=== PATIENT | female | born 1970 | race Caucasian/White ===

== ENCOUNTER 2017-07-17 02:05 | Inpatient (IN) ==
[2017-07-17] MEDS ORDERED: IPRATROPIUM/ALBUTEROL 3 ML AMPUL.NEB NEB ONE ×2 (02:09→02:12)
[2017-07-17] MEDS ORDERED: methylPREDNISolone SOD SUCC 125 MG/2 ML VIAL IV ONE (02:42)
[2017-07-17] MEDS ORDERED: 0.9 % SODIUM CHLORIDE 1,000 ML IV ONE (02:42)
--- NOTE | 2017-07-17 02:50 | Emergency Department Note ---
SOB HPI - General Chief Complaint: Shortness of Breath/Dyspnea Stated Complaint: Shortness of breath Time Seen by Provider: 07/17/17 02:29 Source: patient Mode of arrival: wheelchair Limitations: no limitations - History of Present Illness 47-year-old female who is really been sick for over 6 weeks now-short of breath. She has known COPD and quit smoking 3 months ago. However she was diagnosed with pneumonia back about 6 weeks ago when I saw her at the end of May here in the ER. Since then she has had 4 courses of antibiotics and has been using inhalers, home nebulizer, steroids and has actually become worse not better. [facility] she had used her nebulizer twice just to get her oxygen sats above the 70s-she has a home pulse oximeter as well. In fact this is happened twice today where she has had to use her home nebulizer twice back to back to keep her oxygen levels up. Shortness of breath actually woke her up this evening and brought her in [facility]. She is having chest pain at the location where she was previously diagnosed with pneumonia, that is the left lower lung mosqueda anteriorly. She continues to have shortness of breath and significant wheezing - Related Data Home Medications Medication Instructions Recorded Confirmed diphenhydramine 25 mg tablet 25 mg PO .QD PRN tab 12/13/15 07/17/17 ibuprofen 200 mg tablet 600 mg PO TID tab 12/13/15 07/17/17 mometasone 200 mcg/actuation HFA 2 inh INHALATION QDAY g 09/14/16 07/17/17 aerosol inhaler omeprazole 20 mg capsule,delayed 20 mg PO BID 09/14/16 07/17/17 release Previous Rx's Medication Instructions Recorded albuterol sulfate HFA 90 1 puff INHALATION ONCE PRN #18 g 02/09/17 mcg/actuation aerosol inhaler Nebulizer #1 each 03/19/17 albuterol sulfate concentrate 2.5 2.5 mg CONTINUOUS NEBULIZATION 03/30/17 mg/0.5 mL solution for nebulization .4XD #90 ml sertraline 100 mg tablet 100 mg PO .COMPLEX #30 tab 05/24/17 Allergies Allergy/AdvReac Type Severity Reaction Status Date / Time adhesive Allergy Unknown Blister Verified 06/08/17 08:28 codeine Allergy Unknown Rash Verified 06/08/17 08:28 Hydromorphone Allergy Unknown Unknown Verified 06/08/17 08:28 meperidine [From Demerol] Allergy Unknown Rash Verified 06/08/17 08:28 seasonal Allergy Unknown Breathing Uncoded 06/08/17 08:28 Review of Systems All systems ED: reviewed and negative except as stated. Past Medical History - Past Medical History Attestation: Yes: The following information was validated with the patient. Medical history: Reports: COPD, GERD, other (Allergic rhinitis, sleep apnea) Psychiatric history: Reports: depression KETTLE CLEANER history: Reports: bilateral tubal ligation Surgical history ED: Reports: orthopedic, other (4 times shoulder surgery) Family history: Reports: CAD/NE (Both parents) - Social History smoking status: Former smoker Physical Exam Overweight female in some acute distress secondary to dyspnea. Diaphoretic. Normocephalic atraumatic. Conjunctive are clear sclerae nonicteric. No nasal discharge or congestion. Oropharynx is pink and moist. Some missing teeth. Neck is supple without lymphadenopathy thyromegaly or carotid bruit. Heart is tachycardic but regular rhythm. Lungs are basically clear after single breathing treatment with DuoNeb but she does have significant end expiratory wheeze and increased work of breathing. Abdomen soft nontender nondistended. When I palpate the anterior chest wall I cannot reproduce chest pain. No pedal edema. +2 radial pulse. Alert oriented Limitations: no limitations Course Vital Signs Temperature 98.7 F 07/17/17 02:05 Pulse Rate 104 H 07/17/17 02:05 Respiratory Rate 19 07/17/17 02:05 Blood Pressure 145/95 07/17/17 02:05 Temperature 98.0 F 07/17/17 03:30 Pulse Rate 95 H 07/17/17 04:16 Respiratory Rate 20 07/17/17 04:16 Blood Pressure 126/93 07/17/17 04:16 Pulse Oximetry (%) 95 07/17/17 04:16 Shortness of Breath/Dyspnea - Lab Data Lab results reviewed: Yes I reviewed the patient's lab results. Result diagrams: 07/17/17 02:50 07/17/17 02:50 Lab Results 07/17/17 07/17/17 07/17/17 Range/Units 02:50 02:50 02:50 WBC 6.0 (4.5-11.0) K/mcL RBC 4.44 (4.00-5.20) M/mcL Hgb 13.4 (12.0-15.0) g/dL Hct 39.6 (36.0-48.0) % POC Hct 40.0 (36.0-48.0) % MCV 89.3 (80.0-100.0) fL MCH 30.1 (26.0-34.0) pg MCHC 33.7 (31.0-36.0) g/dL RDW 14.7 H (11.5-14.5) % Plt Count 192 (140-440) K/mcL MPV 9.5 (7.4-10.4) fL Gran % 53.5 (38.0-78.0) % Lymph % (Auto) 31.2 (15.5-49.0) % Yell % (Auto) 10.5 (1.0-12.0) % Eos % (Auto) 4.5 (0.0-7.0) % Baso % (Auto) 0.3 (0.0-2.0) % Gran # 3.2 (1.8-8.0) K/mcL Lymph # (Auto) 1.9 (1.5-4.8) K/mcL Yell # (Auto) 0.6 (0.1-0.9) K/mcL Eos # (Auto) 0.3 (0.0-0.7) K/mcL Baso # (Auto) 0 (0.0-0.3) K/mcL Differential Comment (()) VBG Lactic Acid 1.0 (0.5-2.2) mmol/L POC Sodium 140 (133-145) mmol/L Sodium 137 (133-145) mmol/L POC Potassium 3.3 (3.3-5.1) mmol/L Potassium 3.5 (3.3-5.1) mmol/L POC Chloride 106 (96-108) mmol/L Chloride 101 (96-108) mmol/L Carbon Dioxide 21 L (22-30) mmol/L POC Total CO2 23 (22-30) mmol/L Anion Gap 15.0 (8-16) POC BUN 15 (6-20) mg/dl BUN 14 (6-20) mg/dl Creatinine 0.9 (0.6-1.1) mg/dl POC Creatinine 0.8 (0.6-1.1) mg/dl GFR Calculation 77 Glucose 115 H (70-105) mg/dL POC Glucose 115 H (70-105) mg/dL Calcium 8.7 (8.6-10.4) mg/dl POC WB Ioniz Calcium 1.07 L (1.16-1.32) mmol/L Total Bilirubin 0.3 (0.0-1.0) mg/dL AST 71 H (0-37) U/l ALT 79 H (0-40) U/l Alkaline Phosphatase 121 H (39-117) U/L Troponin T (0-0.03) ng/ml Total Protein 6.9 (5.9-8.4) gm/dL Albumin 3.7 (3.2-5.2) gm/dL Globulin 3.2 (2.2-3.7) gm/dL Albumin/Globulin Ratio 1.2 (1.0-2.3) 07/17/17 Range/Units 02:50 WBC (4.5-11.0) K/mcL RBC (4.00-5.20) M/mcL Hgb (12.0-15.0) g/dL Hct (36.0-48.0) % POC Hct (36.0-48.0) % MCV (80.0-100.0) fL MCH (26.0-34.0) pg MCHC (31.0-36.0) g/dL RDW (11.5-14.5) % Plt Count (140-440) K/mcL MPV (7.4-10.4) fL Gran % (38.0-78.0) % Lymph % (Auto) (15.5-49.0) % Yell % (Auto) (1.0-12.0) % Eos % (Auto) (0.0-7.0) % Baso % (Auto) (0.0-2.0) % Gran # (1.8-8.0) K/mcL Lymph # (Auto) (1.5-4.8) K/mcL Yell # (Auto) (0.1-0.9) K/mcL Eos # (Auto) (0.0-0.7) K/mcL Baso # (Auto) (0.0-0.3) K/mcL Differential Comment (()) VBG Lactic Acid (0.5-2.2) mmol/L POC Sodium (133-145) mmol/L Sodium (133-145) mmol/L POC Potassium (3.3-5.1) mmol/L Potassium (3.3-5.1) mmol/L POC Chloride (96-108) mmol/L Chloride (96-108) mmol/L Carbon Dioxide (22-30) mmol/L POC Total CO2 (22-30) mmol/L Anion Gap (8-16) POC BUN (6-20) mg/dl BUN (6-20) mg/dl Creatinine (0.6-1.1) mg/dl POC Creatinine (0.6-1.1) mg/dl GFR Calculation Glucose (70-105) mg/dL POC Glucose (70-105) mg/dL Calcium (8.6-10.4) mg/dl POC WB Ioniz Calcium (1.16-1.32) mmol/L Total Bilirubin (0.0-1.0) mg/dL AST (0-37) U/l ALT (0-40) U/l Alkaline Phosphatase (39-117) U/L Troponin T < 0.01 (0-0.03) ng/ml Total Protein (5.9-8.4) gm/dL Albumin (3.2-5.2) gm/dL Globulin (2.2-3.7) gm/dL Albumin/Globulin Ratio (1.0-2.3) Flu swab is negative. Arterial blood gas shows pH 7.45 PCO2 36 and PO2 of 61 on room air - Radiology Data Radiology results reviewed: Yes I reviewed the patient's radiology results. Chest x-ray shows increased infiltrate on the left lower lung field. CT scan is ordered to further sort this out CT scan shows no pneumonia, just emphysema - EKG Data EKG attestation: Yes I reviewed and interpreted this EKG. EKG results narrative: EKG shows a rate of 108 sinus tachycardia with T-wave inversion in V1 and V2. There is a left axis deviation Disposition Pt seen by EVENT AV OPERATOR/PA only: No Clinical Impression: Acute exacerbation of chronic obstructive airways disease Summary: Patient received DuoNeb treatment while working up with laboratory x-ray. Flu swab arterial blood gas, IV fluids and Solu-Medrol also ordered. Blood cultures and Zosyn After chest x-ray reviewed, CT scan is ordered-emphysema is seen but no pneumonia Laboratory is unrevealing. However even after workup and nebulizer treatment patient remains very fatigued with wheezing and increased work of breathing. Still requiring oxygen. Recommend admission for COPD exacerbation after prolonged therapeutic trial as an outpatient. Discussed case with Dr. Osorio, hospitalist, who agreed to accept the patient further inpatient care Disposition: Home, Self-Care Condition: Fair Referrals: Primitivo Garcia DO [Primary Care Provider] -
[2017-07-17] MEDS ORDERED: PIPERACILLIN SODIUM/TAZOBACTAM 3.375 GM in DEXTROSE 5% IN WATER 50 ML IV ONE (02:55)
[2017-07-17 03:36] LABS: Basophils # (Auto) 0 K/mcL (0.0-0.3); Basophils % (Auto) 0.3 % (0.0-2.0); Eosinophils # (Auto) 0.3 K/mcL (0.0-0.7); Eosinophils % (Auto) 4.5 % (0.0-7.0); Granulocytes % (Auto) 53.5 % (38.0-78.0); Lymphocytes # (Auto) 1.9 K/mcL (1.5-4.8); Lymphocytes % (Auto) 31.2 % (15.5-49.0); Mean Cell Volume 89.3 fL (80.0-100.0); Mean Corpuscular HGB Conc 33.7 g/dL (31.0-36.0); Mean Corpuscular Hemoglobin 30.1 pg (26.0-34.0); Monocytes # (Auto) 0.6 K/mcL (0.1-0.9); Monocytes % (Auto) 10.5 % (1.0-12.0); Platelet Count 192 K/mcL (140-440); RBC 4.44 M/mcL (4.00-5.20); Red Cell Distribution Width 14.7 % (11.5-14.5)
[2017-07-17 03:50] LABS: ALT/SGPT 79 U/l (0-40); Albumin 3.7 gm/dL (3.2-5.2); Albumin/Globulin Ratio 1.2 (1.0-2.3); Alkaline Phosphatase 121 U/L (39-117); Blood Urea Nitrogen 14 mg/dl (6-20)
[2017-07-17] MEDS ORDERED: SERTRALINE 25 MG TABLET PO SCH (05:37)
[2017-07-17] MEDS ORDERED: ONDANSETRON 4 MG/2 ML VIAL IV PRN (05:37)
[2017-07-17] MEDS ORDERED: NALOXONE HCL 0.4 MG/ML VIAL IV PRN (05:37)
[2017-07-17] MEDS ORDERED: MAGNESIUM HYDROXIDE 30 ML ORAL.SUSP PO PRN (05:37)
[2017-07-17] MEDS ORDERED: ACETAMINOPHEN 325 MG TABLET PO PRN (05:37)
[2017-07-17] MEDS ORDERED: methylPREDNISolone SOD SUCC 125 MG/2 ML VIAL IV SCH (06:00)
--- NOTE | 2017-07-17 06:10 | XRay Report ---
CLINICAL INFORMATION: Shortness of breath COMPARISON: None. FINDINGS: The heart size, mediastinum and pulmonary vessels are unremarkable. The lungs are clear. There are no effusions. The bones and soft tissues are within normal limits. IMPRESSION: Normal chest. Interpreted and Authenticated by: Primitivo Friedman 07/17/17
[2017-07-17] MEDS ORDERED: diphenhydrAMINE 25 MG CAPSULE PO PRN (07:19)
[2017-07-17] MEDS: IPRATROPIUM/ALBUTEROL 3 ML AMPUL.NEB NEB SCH ×5 (07:47→22:19)
--- NOTE | 2017-07-17 07:49 | Internal Med History&Physical ---
Medical - H&P: HPI Patient information: Note initiated : 07/17/17 at 7:45 am Service Date, if different from initiated Date: [] Patient: Amalia Perera a 47 y/o F admitted on 07/17/17 for Shortness of breath. Chief Complaint: [] History of present illness: Ms. Perera is a 47 year old Female with h/o copd, presents to the ER today with complaints of shortness of breath going on x 1 week. the patient notes that for the last 1 week she has noticed due to shortness of breath associated with fever, shortness of breath is worse with exertion, associated with some wheezing , since the last 2 days she has noticed that her oxygen level has been dropping. Negative for yesterday. She's had an episode of shortness of breath while she was sitting down. She has a pulse oximeter at home she checked her oxygen saturation it was in the 70s, she gave herself 2 rounds of duonebs and that helped her oxygen come back up again. The patient last night again woke up with shortness of breath and wheezing. Her oxygen saturation was again in the 70s. She gave herself 2 rounds of DuoNeb's and came to the ED for further evaluation. In the emergency room. According to the ED physician. Her oxygen saturation was low at presentation. This improved after given nebulizer treatment. The patient is also complaining about fever with intermittent chills that has been going on for the last 1 week. The patient has not been feeling well over the last 6 weeks, she was seen in the emergency room, I believe in May with similar complaints, daignosed with pneumonia, At that time, she was given a round of antibiotics and steroids. After which she has been seen twice by a provider and she's had 2 more rounds of antibiotics. I believe she was treated by azithromycin, doxycycline and possibly levofloxacin . In the last 6 weeks. The patient has had some response to these treatments. However, her condition is relapsed after the treatment was completed. according to the patient. She has a pet, she has stopped smoking recently, I believe, 3 months ago, she has not had any change in her environment at home, no new perfumes. No new detergents, no new pets. Her boyfriend who lives next door is doing some construction work and the patient is there often. It is likely that this construction work and the dust emanating from it is likely acting as a trigger and exacerbating the patient's condition. the patient denies any exposure to sick contacts. In the emergency room, the patient was febrile with a temperature of 101.3, she was hypoxic according to the ER physician in the 70s with improvement with DuoNeb's. Her labs were unremarkable, chest x-ray was initially reported as possible infiltrate. However, later CT chest was done which did not show any infection or pneumonia. Option reading of the CT scan of the chest with contrast is still pending. the patient had some headache and dizziness in the past not resolved, denies any difficulty in swallowing, no visual or auditory complaints, she has some shortness of breath and wheezing, she had some chest pain since last 1 day. On the left side associated with deep breathing, she denies any nausea, vomiting, abdominal pain, denies any burning urine. His frequency of urine. Denies any constipation or diarrhea, she denies any joint pains or new skin rashes. he has history of anxiety. Given that she has failed outpatient treatment. The patient was admitted to the hospital for further management. All systems: reviewed and no additional remarkable complaints except as stated ( as per HPI) Medical - H&P: PMH Medical history: Medical History (Last Reviewed 06/08/17 @ 08:28 by Primitivo Garcia DO) Tobacco abuse (Chronic) Rotator cuff tear, left (Chronic) Shoulder pain (Chronic) Hypertension (Chronic) Depression (Chronic) Asthma (Chronic) Anxiety (Chronic) Acute exacerbation of chronic obstructive airways disease (Chronic) Surgical history: Past Surgical History (Last Reviewed 06/08/17 @ 08:28 by Primitivo Garcia DO) Hx of rotator cuff surgery (Chronic) Hx of shoulder surgery (Chronic) Hx of tubal ligation (Chronic) Pertinent family history: Family History (Last Reviewed 06/08/17 @ 08:28 by Primitivo Garcia DO) Sister Diabetes Hypertension Brother Diabetes Hypertension Mother Heart attack Cardiovascular disease Father Stroke Cardiovascular disease Medical - H&P: Meds Home Medications Medication Instructions Recorded Confirmed Type diphenhydramine 25 mg tablet 25 mg PO .QD PRN tab 12/13/15 07/17/17 History ibuprofen 200 mg tablet 600 mg PO TID tab 12/13/15 07/17/17 History mometasone 200 mcg/actuation HFA 2 inh INHALATION QDAY g 09/14/16 07/17/17 History aerosol inhaler omeprazole 20 mg capsule,delayed 20 mg PO LD 09/14/16 07/17/17 History release albuterol sulfate HFA 90 1 puff INHALATION ONCE PRN #18 g 02/09/17 07/17/17 Rx mcg/actuation aerosol inhaler Nebulizer #1 each 03/19/17 06/08/17 Rx albuterol sulfate concentrate 2.5 2.5 mg CONTINUOUS NEBULIZATION 03/30/17 Rx mg/0.5 mL solution for nebulization .4XD #90 ml sertraline 100 mg tablet 100 mg PO .COMPLEX #30 tab 05/24/17 07/17/17 Rx Allergies Allergy/AdvReac Type Severity Reaction Status Date / Time codeine Allergy Mild Rash Verified 07/17/17 07:09 meperidine [From Demerol] Allergy Mild Rash Verified 07/17/17 07:09 Hydromorphone Allergy Unknown Unknown Verified 06/08/17 08:28 adhesive AdvReac Mild Blister Verified 07/17/17 07:09 Medical - H&P: Exam - Constitutional Vitals: Temp Pulse Resp BP Pulse Ox 97.6 F 88 24 H 158/108 96 07/17/17 05:37 07/17/17 05:37 07/17/17 05:37 07/17/17 05:37 07/17/17 05:37 Exam: GENERAL: The patient is a well-developed, well-nourished in no apparent distress. Is alert and oriented x3. VITAL SIGNS: Reviewed and as noted elsewhere. HEENT: Head is normocephalic and atraumatic. Extraocular muscles are intact. Pupils are equal, round, and reactive to light. Nares appeared normal. Mouth appears any without lesions. Mucous membranes are dry. NECK: Normal to inspection, Supple, No lymphadenopathy or thyromegaly. LUNGS: Air entry equal on both sides, xiomy significantly dimished air entry, xiomy exp wheezing No crackles or rhonchi noted. No accessory muscles of respiration HEART: Regular rate and rhythm normal, S1 and S2 heard, no Gallop, S3 or Rub Noted, No Gross murmur heard. ABDOMEN: Soft, nontender, and nondistended. Positive bowel sounds. No hepatosplenomegaly was noted. EXTREMITIES: No cyanosis, clubbing, rash, lesions or edema. NEUROLOGIC: Cranial nerves II through XII are grossly intact. Motor and Sensory System Grossly Intact PSYCHIATRIC: Normal affect, Normal Mood. Appropriate Behavior. SKIN: No ulceration or wounds noted, No jaundice, No rash noted. Medical - H&P: Reslt - Labs CBC & Chem 7: 07/17/17 02:50 07/17/17 02:50 Labs: Short CBC 07/17/17 Range/Units 02:50 WBC 6.0 (4.5-11.0) K/mcL Hgb 13.4 (12.0-15.0) g/dL Hct 39.6 (36.0-48.0) % Plt Count 192 (140-440) K/mcL BMP 07/17/17 02:50 Sodium 137 Potassium 3.5 Chloride 101 Carbon Dioxide 21 L BUN 14 Creatinine 0.9 Glucose 115 H Calcium 8.7 Cardiac Enzymes 07/17/17 Range/Units 02:50 Troponin T < 0.01 (0-0.03) ng/ml Liver Function 07/17/17 Range/Units 02:50 Total Bilirubin 0.3 (0.0-1.0) mg/dL AST 71 H (0-37) U/l ALT 79 H (0-40) U/l Alkaline Phosphatase 121 H (39-117) U/L Albumin 3.7 (3.2-5.2) gm/dL Medical - H&P: A/P - Narrative A/P Narrative: A/P Acute copd exacerbation/ emphysema: triggers, IV steroids, DuoNeb every 4 hours and azithromycin for now. CT chest is negative for an acute pneumonia. We will follow-up official result. The etiology of fever would likely be a viral in nature. Influenza test was negative. In the ED, Patient educated to avoid the construction activity at the boyfriend's house or use a mask. Check ua and urine drug screen, check procalcitonin. Anxiety: continue zoloft Obesity Wt loss needed follow with pcp Chest pain: Pleuritic in nature, await ct results, EKG reviewed, has some qs pattern in ant septal leads, left axis, and non specific t wave changes in ant and lateral leads, unchanged from previous ekg, trend troponin for now. DVT hep sq Diet regular Full code Medical - H&P: Qual - Stroke Symptom Onset Unknown: No - VTE Deep Vein Thrombosis/Pulmonary Embolism Present on Admission: No Social History - Social History adopted: No household members: alone, significant other, other housing: other marital status: single education level: middle school service: No occupational status: unemployed occupation: worked at [email or web address] since 2012 pets and animals: Yes leisure activities: reading hx recent travel: No sexually active: Yes (not for past 12 months) - Pets pets and animals: dog(s) - Dietary Habits well-balanced diet: other high-fat food intake: 0-1 times daily daily servings fruits/ve or more times/day daily servings of milk/calcium: 0-1 eating out: rarely or never during the past year weight has: decreased > 10 lbs - Exercise physical activity: walking frequency: daily duration: 45-60 minutes/day - Tobacco smoking status: Former smoker quit status: considering quitting counseling given: provider counseling - Tobacco Type tobacco type: cigarettes - Cigarette Details per day: 2 - Alcohol alcohol intake frequency: former alcohol drinker - Substance use substance use type: does not use - Carly/Buddhist carly/quaker: None special carly needs: No - Safety helmet use: Yes drive intox or ride w/ intox vending route driver: No - Home Safety water heater temp set < 120 deg: Yes working smoke detector in home: Yes fire extinguisher in home: Yes carbon monox detector in home: Yes firearms in home: No
[2017-07-17] MEDS ORDERED: AZITHROMYCIN 250 MG TABLET PO ONE (08:00)
[2017-07-17] MEDS: OMEPRAZOLE 20 MG CAPSULE PO SCH ×2 (08:36→16:52)
[2017-07-17] MEDS: SERTRALINE 50 MG TABLET PO SCH (09:54)
[2017-07-17] MEDS: ENOXAPARIN 40 MG/0.4 ML SYRINGE SQ SCH (09:55)
[2017-07-17 10:19] LABS: Appearance,Urine CLEAR; Bacteria,Urine 0 /hpf (0); Bilirubin,Urine NEG (NEG); Color,Urine YELLOW; Glucose,Urine (UA) NEGATIVE (NEG); Leukocyte Esterase,Urine NEG /uL (NEG); Mucus,Urine FEW /hpf (0); Protein,Urine NEG (NEG); Specific Gravity,Urine 1.027 (1.000-1.035); Urine Blood 0.03 mg/dL (<0.03); Urine RBC 3 /hpf (0-1); Urine Squamous Epithelial Cell < 1 /hpf (0-4); Urine WBC 1 /hpf (0-4); Urobilinogen,Urine NEG (NEG)
[2017-07-17 10:30] LABS: Amphetamine Screen,Urine NONE DETECTED (NONDETECTED); Benzodiazepines Screen,Urine NONE DETECTED (NONDETECTED); Cocaine Screen,Urine NONE DETECTED (NONDETECTED); Opiate Screen,Urine NONE DETECTED (NONDETECTED); Oxycodone, Urine Screen NONE DETECTED (NONDETECTED)
[2017-07-17] MEDS: HYDROcodone/APAP 5/325MG TABLET PO PRN ×2 (13:00→16:52)
[2017-07-17] MEDS: methylPREDNISolone SOD SUCC 125 MG/2 ML VIAL IV SCH ×2 (13:01→21:25)
[2017-07-17] MEDS: 0.9 % SODIUM CHLORIDE 10 ML SYRINGE IV SCH ×2 (13:05→21:24)
--- NOTE | 2017-07-17 15:48 | Cat Scan Report ---
CLINICAL INFORMATION: Shortness of breath. History of COPD COMPARISON: 06/05/2017 TECHNIQUE: 80 cc of Isovue-300 were injected intravenously, and 25 seconds later, 0.625 mm helical slices were obtained from the lung apices through the bases. Following reconstruction, 2.5 mm sagittal, coronal and axial reformations were processed and reviewed at lung, mediastinal and bone windows. 7 mm axial MIPS were also obtained to optimize pulmonary nodule detection. The exam was performed using radiation dose optimization techniques including, but not limited to, automated exposure control, adjustment of the mA and/or kV according to patient size and use of iterative reconstruction technique. FINDINGS: Pulmonary parenchymal windows show mild centrilobular emphysema changes featuring elevated lung volumes, chronic bronchitis with a few scattered bullae and apical regions. The small bilateral infiltrates, described in previous study study have largely cleared with small residual groundglass infiltrate in the lateral basilar segment of the left lower lobe (image 37) and a small residual infiltrate in the lateral right upper lobe (image 33). A small (6 mm nodular density in the lateral right lower lobe (image 91) is likely focal atelectasis. This was not present on the previous study. There are no effusions. Mediastinal windows show thoracic aorta and pulmonary arteries to be normal. Borderline enlarged lymph nodes and lower mediastinal and unchanged are likely benign reactive lymph nodes. The heart is normal in size configuration. Coronary arteries are widely patent esophagus is normal. Thyroid is normal. IMPRESSION: Only a small vague infiltrates in the right upper and left lower lobe. Most of the infiltrates, described on previous study, have resolved Mild underlying centrilobular emphysema Interpreted and Authenticated by: Primitivo Friedman 07/17/17
[2017-07-17] MEDS ORDERED: FLU VACC QS2017-18 36MOS UP/PF 60 MCG/0.5 ML SYRINGE IM ONE (16:00)
[2017-07-18] MEDS: IPRATROPIUM/ALBUTEROL 3 ML AMPUL.NEB NEB SCH ×6 (04:10→23:10)
[2017-07-18 05:51] LABS: Basophils # (Auto) 0 K/mcL (0.0-0.3); Basophils % (Auto) 0.2 % (0.0-2.0); Eosinophils # (Auto) 0.2 K/mcL (0.0-0.7); Eosinophils % (Auto) 2.1 % (0.0-7.0); Granulocytes % (Auto) 78.9 % (38.0-78.0); Lymphocytes # (Auto) 1.2 K/mcL (1.5-4.8); Lymphocytes % (Auto) 15.8 % (15.5-49.0); Mean Cell Volume 92.8 fL (80.0-100.0); Mean Corpuscular HGB Conc 34.1 g/dL (31.0-36.0); Mean Corpuscular Hemoglobin 31.6 pg (26.0-34.0); Monocytes # (Auto) 0.2 K/mcL (0.1-0.9); Platelet Count 237 K/mcL (140-440); RBC 4.09 M/mcL (4.00-5.20); Red Cell Distribution Width 15.3 % (11.5-14.5)
[2017-07-18] MEDS: methylPREDNISolone SOD SUCC 125 MG/2 ML VIAL IV SCH ×3 (05:56→22:12)
[2017-07-18] MEDS: 0.9 % SODIUM CHLORIDE 10 ML SYRINGE IV SCH ×3 (05:56→22:12)
[2017-07-18 06:04] LABS: ALT/SGPT 60 U/l (0-40); Albumin 4.2 gm/dL (3.2-5.2); Albumin/Globulin Ratio 1.4 (1.0-2.3); Alkaline Phosphatase 112 U/L (39-117); Bilirubin,Direct < 0.2 mg/dL (0.0-0.3); Blood Urea Nitrogen 16 mg/dl (6-20); Gamma Glutamyl Transpeptidase 131 U/L (5-36); Uric Acid 4.7 mg/dL (2.5-8.0)
[2017-07-18] MEDS: OMEPRAZOLE 20 MG CAPSULE PO SCH ×2 (07:56→17:09)
[2017-07-18] MEDS: HYDROcodone/APAP 5/325MG TABLET PO PRN ×2 (07:57→17:09)
[2017-07-18] MEDS ORDERED: AZITHROMYCIN 250 MG TABLET PO SCH (09:00)
[2017-07-18] MEDS: SERTRALINE 50 MG TABLET PO SCH (09:19)
[2017-07-18] MEDS: ENOXAPARIN 40 MG/0.4 ML SYRINGE SQ SCH (09:20)
--- NOTE | 2017-07-18 10:25 | Internal Med Progress Note ---
Medical - PN: Subj Patient information: Note initiated : 07/18/17 at 10:23 am Service Date, if different from initiated Date: [] Patient: Amalia Perera a 47 y/o F admitted on 07/17/17 for Shortness of breath. Chief Complaint: [] Interval history: Ms. Perera is a 47 year old Female with h/o copd, presents to the ER today with complaints of shortness of breath going on x 1 week. the patient notes that for the last 1 week she has noticed due to shortness of breath associated with fever, shortness of breath is worse with exertion, associated with some wheezing , since the last 2 days she has noticed that her oxygen level has been dropping. Negative for yesterday. She's had an episode of shortness of breath while she was sitting down. She has a pulse oximeter at home she checked her oxygen saturation it was in the 70s, she gave herself 2 rounds of duonebs and that helped her oxygen come back up again. The patient last night again woke up with shortness of breath and wheezing. Her oxygen saturation was again in the 70s. She gave herself 2 rounds of DuoNeb's and came to the ED for further evaluation. In the emergency room. According to the ED physician. Her oxygen saturation was low at presentation. This improved after given nebulizer treatment. The patient is also complaining about fever with intermittent chills that has been going on for the last 1 week. The patient has not been feeling well over the last 6 weeks, she was seen in the emergency room, I believe in May with similar complaints, daignosed with pneumonia, At that time, she was given a round of antibiotics and steroids. After which she has been seen twice by a provider and she's had 2 more rounds of antibiotics. I believe she was treated by azithromycin, doxycycline and possibly levofloxacin . In the last 6 weeks. The patient has had some response to these treatments. However, her condition is relapsed after the treatment was completed. according to the patient. She has a pet, she has stopped smoking recently, I believe, 3 months ago, she has not had any change in her environment at home, no new perfumes. No new detergents, no new pets. Her boyfriend who lives next door is doing some construction work and the patient is there often. It is likely that this construction work and the dust emanating from it is likely acting as a trigger and exacerbating the patient's condition. the patient denies any exposure to sick contacts. In the emergency room, the patient was febrile with a temperature of 101.3, she was hypoxic according to the ER physician in the 70s with improvement with DuoNeb's. Her labs were unremarkable, chest x-ray was initially reported as possible infiltrate. However, later CT chest was done which did not show any infection or pneumonia. Option reading of the CT scan of the chest with contrast is still pending. the patient had some headache and dizziness in the past not resolved, denies any difficulty in swallowing, no visual or auditory complaints, she has some shortness of breath and wheezing, she had some chest pain since last 1 day. On the left side associated with deep breathing, she denies any nausea, vomiting, abdominal pain, denies any burning urine. His frequency of urine. Denies any constipation or diarrhea, she denies any joint pains or new skin rashes. he has history of anxiety. Given that she has failed outpatient treatment. The patient was admitted to the hospital for further management. Jul 18 patient seen and examined, no acute overnight events, she gets tachycardic on ambulation with a heart rate comes back normal, when she is at rest. The patient still had shortness of breath on minimal exertion. She admits to being fatigued during ambulation. Cough is still there. She notes symptoms are somewhat worse today than yesterday. Improved with nebulizer treatments. She denies any chest pain, no abdominal pain, no nausea, no vomiting, able to tolerate by mouth diet very well, she still needs oxygen 1-2 L intermittently. Laboratory studies reviewed Pertinent ROS: Denies headache, dizziness Denies chest pain, palpitations present cough and shortness of breath Denies abdominal pain, nausea or vomiting. - Constitutional Vitals: Vital Signs Temp Pulse Resp BP Pulse Ox 98.2 F 98 H 18 143/93 92 07/18/17 07:49 07/18/17 07:30 07/18/17 07:49 07/18/17 07:49 07/18/17 07:49 Period Temp Pulse Resp BP Sys/Valencia Pulse Ox Last 24 Hr 97.8 F-99.1 F 85-104 18-22 131-156/89-103 88-98 Intake and Output 07/17/17 07/18/17 07/18/17 21:59 05:59 13:59 Intake Total 1020 / 1020 300 / 300 Output Total 600 / 600 600 / 600 Balance 420 / 420 -300 / -300 Weight 211 lb Intake & Output: Intake & Output 07/17/17 07/18/17 07/18/17 21:59 05:59 13:59 Intake Total 1020 / 1020 300 / 300 Output Total 600 / 600 600 / 600 Balance 420 / 420 -300 / -300 Weight 211 lb Intake: Oral 1020 / 1020 300 / 300 Output: Void Amount 600 / 600 600 / 600 Other: Meal Dinner Breakfast Percent of Meal Consumed 100% 100% Feeding Ability Independent Independent # Voids 1 Exam: Constitutional; Afebrile, cooperative, alert, not in distress. Eyes- No icterus, , No periorbital swelling Ears- Ext ear normal, hearing normal to conversation. Neck- Midline trachea, supple Respiratory system: Air Entry equal on both sides, bilaterally diminished air entry, xiomy exp wheezing. no resp distress noted. CVS- Rate rhythm regular, S1,S2 heard, no gallop, no rub. Abdomen- Soft nontender abdomen, no organomegaly, no tenderness, no guarding or rigidity, W[employer] BATTER [employer]ER- AOOx3, moving all extremities, no gross focal deficit noted. Medical - PN: Obj Da - Labs CBC & Chem 7: 07/18/17 03:30 07/18/17 03:30 Labs: Abnormal Lab Results 07/18/17 07/18/17 07/17/17 03:30 03:30 09:12 RDW 15.3 H Gran % 78.9 H Lymph # (Auto) 1.2 L Carbon Dioxide Glucose 153 H POC Glucose POC WB Ioniz Calcium GGT 131 H AST ALT 60 H Alkaline Phosphatase Lactate Dehydrogenase 310 H Triglycerides 177 H Urine Occult Blood 0.03 A Urine RBC 3 H 07/17/17 07/17/17 02:50 02:50 RDW 14.7 H Gran % Lymph # (Auto) Carbon Dioxide 21 L Glucose 115 H POC Glucose 115 H POC WB Ioniz Calcium 1.07 L GGT AST 71 H ALT 79 H Alkaline Phosphatase 121 H Lactate Dehydrogenase Triglycerides Urine Occult Blood Urine RBC Meds: Medications Acetaminophen (Tylenol) 650 mg PO Q6HP PRN PRN Reason: PAIN/FEVER > 101 Last Admin: 07/17/17 18:46 Dose: 650 mg Hydrocodone Bitart/Acetaminophen ([place] 5/325mg) 1 tab PO Q4HP PRN PRN Reason: PAIN LEVEL 3-6 Last Admin: 07/18/17 07:57 Dose: 1 tab Albuterol/Ipratropium (Duoneb) 3 ml NEB Q4HRT [facility] Last Admin: 07/18/17 07:29 Dose: 3 ml Azithromycin (Zithromax) 250 mg PO DAILY [facility] Stop: 07/21/17 09:01 Last Admin: 07/18/17 09:19 Dose: 250 mg Diphenhydramine HCl (Benadryl) 25 mg PO DAILYP PRN PRN Reason: Allergy Symptoms Enoxaparin Sodium (Lovenox) 40 mg SQ DAILY [facility] Last Admin: 07/18/17 09:20 Dose: 40 mg Magnesium Hydroxide (Milk Of Magnesia) 30 ml PO DAILYP PRN PRN Reason: Constipation Methylprednisolone Sodium Succinate (Solu-Medrol) 62.5 mg IV Q8 [facility] Last Admin: 07/18/17 05:56 Dose: 62.5 mg Naloxone HCl (Narcan) 0.1 mg IV Q2MIN PRN PRN Reason: Opiate Reversal Omeprazole (Prilosec) 20 mg PO BIDAC [facility] Last Admin: 07/18/17 07:56 Dose: 20 mg Ondansetron HCl (Zofran) 4 mg IV Q4HP PRN PRN Reason: Nausea And Vomiting Mometasone Furoate [ (Asmanex Hfa] Inhaler) 2 dose INH HS [facility] Last Admin: 07/17/17 21:24 Dose: 2 dose Sertraline HCl (Zoloft) 100 mg PO DAILY [facility] Last Admin: 07/18/17 09:19 Dose: 100 mg Sodium Chloride (Saline Flush) 10 ml IV Q8 [facility] Last Admin: 07/18/17 05:56 Dose: 10 ml Medical - PN: A/P - Time Spent With Patient Total time spent is greater than 50% in coordination of care (as documented) at patient's floor/unit and/or counseling patient: - Narrative A/P Narrative: A/P Acute copd exacerbation/ emphysema: Continue IV steroids, zithromax and duonebs , d/c tele, monitor for now. afebrile now, CT neg for worsening pna, mild infitrates which are improving compared to previous studies. Anxiety: continue zoloft Obesity Wt loss needed follow with pcp Chest pain: Pleuritic in nature, chest pain resolved, trop x 2 neg. DVT hep sq Diet regular Full code Medical - PN: Qual - Stroke Symptom Onset Unknown: No - VTE Deep Vein Thrombosis/Pulmonary Embolism Present on Admission: No
[2017-07-18] MEDS ORDERED: ACETAMINOPHEN 325 MG TABLET PO PRN (11:27)
[2017-07-18] MEDS ORDERED: MAGNESIUM HYDROXIDE 30 ML ORAL.SUSP PO PRN (11:27)
[2017-07-18] MEDS ORDERED: diphenhydrAMINE 25 MG CAPSULE PO PRN (11:27)
[2017-07-18] MEDS ORDERED: ONDANSETRON 4 MG/2 ML VIAL IV PRN (11:27)
[2017-07-18] MEDS ORDERED: NALOXONE HCL 0.4 MG/ML VIAL IV PRN (11:27)
[2017-07-18] MEDS ORDERED: IPRATROPIUM/ALBUTEROL 3 ML AMPUL.NEB NEB ONE (11:32)
[2017-07-19] MEDS: IPRATROPIUM/ALBUTEROL 3 ML AMPUL.NEB NEB SCH ×7 (03:26→22:33)
[2017-07-19 05:31] LABS: Basophils # (Auto) 0 K/mcL (0.0-0.3); Basophils % (Auto) 0.1 % (0.0-2.0); Eosinophils # (Auto) 0.2 K/mcL (0.0-0.7); Eosinophils % (Auto) 1.6 % (0.0-7.0); Granulocytes % (Auto) 81.3 % (38.0-78.0); Lymphocytes # (Auto) 1.4 K/mcL (1.5-4.8); Lymphocytes % (Auto) 13.6 % (15.5-49.0); Mean Cell Volume 90.4 fL (80.0-100.0); Mean Corpuscular HGB Conc 33.5 g/dL (31.0-36.0); Mean Corpuscular Hemoglobin 30.3 pg (26.0-34.0); Monocytes # (Auto) 0.4 K/mcL (0.1-0.9); Monocytes % (Auto) 3.4 % (1.0-12.0); Platelet Count 261 K/mcL (140-440); RBC 4.25 M/mcL (4.00-5.20); Red Cell Distribution Width 15.4 % (11.5-14.5)
[2017-07-19] MEDS: 0.9 % SODIUM CHLORIDE 10 ML SYRINGE IV SCH ×3 (05:42→21:22)
[2017-07-19] MEDS: methylPREDNISolone SOD SUCC 125 MG/2 ML VIAL IV SCH (05:43)
[2017-07-19 05:57] LABS: ALT/SGPT 48 U/l (0-40); Albumin/Globulin Ratio 1.4 (1.0-2.3); Alkaline Phosphatase 98 U/L (39-117); Bilirubin,Direct < 0.2 mg/dL (0.0-0.3); Blood Urea Nitrogen 25 mg/dl (6-20); Gamma Glutamyl Transpeptidase 113 U/L (5-36); Uric Acid 4.2 mg/dL (2.5-8.0)
[2017-07-19] MEDS: AZITHROMYCIN 250 MG TABLET PO SCH (08:19)
[2017-07-19] MEDS: SERTRALINE 50 MG TABLET PO SCH (08:20)
[2017-07-19] MEDS: OMEPRAZOLE 20 MG CAPSULE PO SCH ×2 (08:20→21:21)
[2017-07-19] MEDS: ENOXAPARIN 40 MG/0.4 ML SYRINGE SQ SCH (08:22)
[2017-07-19] MEDS ORDERED: IOPAMIDOL 100 ML BOTTLE IV ONE (12:07)
--- NOTE | 2017-07-19 12:30 | Cat Scan Report ---
CLINICAL INFORMATION: Exacerbation dyspnea. History of COPD COMPARISON: Chest CT from 06/05/2017 and 07/17/2017. TECHNIQUE: 80 cc of Isovue-300 were injected intravenously. Using SmartPrep to maximize pulmonary artery opacification, 2.5 mm helical slices were obtained from the lung apices through the lung bases. Following reconstruction, 2.5 mm sagittal, coronal, and axial reformations were processed. The exam was reviewed at mediastinal, lung, and bone windows. The exam was performed using radiation dose optimization techniques including, but not limited to, automated exposure control, adjustment of the mA and/or kV according to patient size and use of iterative reconstruction technique. FINDINGS: Mediastinal windows show the pulmonary arteries are normal in contour and caliber and well opacified - no evidence of embolus. Thoracic aorta is also unremarkable. There is no adenopathy mediastinal, hilar or axillary regions. Heart is normal in size and configuration without appreciable plaque seen in the proximal coronary arteries. Esophagus and thyroid are normal. Pulmonary parenchymal windows show moderate centrilobular emphysema changes with elevated lung volumes, chronic bronchitis and scattered scarring and small bullae dominating in the upper lobes. On the earliest CT approximately six weeks ago (06/05/2017, there were catheter groundglass infiltrates. These have nearly resolved with only minimal residual in the lingula on today's study. There are no effusions IMPRESSION: 1. No evidence of pulmonary embolus 2. Moderate centrilobular emphysema 3. Complete resolution in scattered bilateral groundglass infiltrates with small vague residual persisting in the lingula. No new pulmonary abnormalities Interpreted and Authenticated by: Primitivo Friedman 07/19/17
--- NOTE | 2017-07-19 13:32 | Internal Med Progress Note ---
Medical - PN: Subj Patient information: Note initiated : 07/19/17 at 1:29 pm Service Date, if different from initiated Date: [] Patient: Amalia Perera a 47 y/o F admitted on 07/18/17 for Shortness of Breath/ COPD Exacerbation. Chief Complaint: [] Interval history: Ms. Perera is a 47 year old Female with h/o copd, presents to the ER today with complaints of shortness of breath going on x 1 week. the patient notes that for the last 1 week she has noticed due to shortness of breath associated with fever, shortness of breath is worse with exertion, associated with some wheezing , since the last 2 days she has noticed that her oxygen level has been dropping. Negative for yesterday. She's had an episode of shortness of breath while she was sitting down. She has a pulse oximeter at home she checked her oxygen saturation it was in the 70s, she gave herself 2 rounds of duonebs and that helped her oxygen come back up again. The patient last night again woke up with shortness of breath and wheezing. Her oxygen saturation was again in the 70s. She gave herself 2 rounds of DuoNeb's and came to the ED for further evaluation. In the emergency room. According to the ED physician. Her oxygen saturation was low at presentation. This improved after given nebulizer treatment. The patient is also complaining about fever with intermittent chills that has been going on for the last 1 week. The patient has not been feeling well over the last 6 weeks, she was seen in the emergency room, I believe in May with similar complaints, daignosed with pneumonia, At that time, she was given a round of antibiotics and steroids. After which she has been seen twice by a provider and she's had 2 more rounds of antibiotics. I believe she was treated by azithromycin, doxycycline and possibly levofloxacin . In the last 6 weeks. The patient has had some response to these treatments. However, her condition is relapsed after the treatment was completed. according to the patient. She has a pet, she has stopped smoking recently, I believe, 3 months ago, she has not had any change in her environment at home, no new perfumes. No new detergents, no new pets. Her boyfriend who lives next door is doing some construction work and the patient is there often. It is likely that this construction work and the dust emanating from it is likely acting as a trigger and exacerbating the patient's condition. the patient denies any exposure to sick contacts. In the emergency room, the patient was febrile with a temperature of 101.3, she was hypoxic according to the ER physician in the 70s with improvement with DuoNeb's. Her labs were unremarkable, chest x-ray was initially reported as possible infiltrate. However, later CT chest was done which did not show any infection or pneumonia. Option reading of the CT scan of the chest with contrast is still pending. the patient had some headache and dizziness in the past not resolved, denies any difficulty in swallowing, no visual or auditory complaints, she has some shortness of breath and wheezing, she had some chest pain since last 1 day. On the left side associated with deep breathing, she denies any nausea, vomiting, abdominal pain, denies any burning urine. His frequency of urine. Denies any constipation or diarrhea, she denies any joint pains or new skin rashes. he has history of anxiety. Given that she has failed outpatient treatment. The patient was admitted to the hospital for further management. Jul 18 patient seen and examined, no acute overnight events, she gets tachycardic on ambulation with a heart rate comes back normal, when she is at rest. The patient still had shortness of breath on minimal exertion. She admits to being fatigued during ambulation. Cough is still there. She notes symptoms are somewhat worse today than yesterday. Improved with nebulizer treatments. She denies any chest pain, no abdominal pain, no nausea, no vomiting, able to tolerate by mouth diet very well, she still needs oxygen 1-2 L intermittently. Laboratory studies reviewed Jul 19 patient seen and examined, no acute overnight events, she is still tachycardic and short of breath with activity. A much shortness of breath. On exam, there is not much wheezing today. At entry is okay. She continues to be on DuoNeb. Given that her air entry is okay and not much wheeze today and the patient still being symptomatic, look for alternative causes of shortness of breath, get a CT angiogram to rule out pulmonary embolism, get an echocardiogram to evaluate for heart failure and pulmonary hypertension. Pertinent ROS: Denies headache, dizziness Denies chest pain, palpitations present cough or shortness of breath Denies abdominal pain, nausea or vomiting. - Constitutional Vitals: Vital Signs Temp Pulse Resp BP Pulse Ox 98.7 F 86 18 143/94 93 07/19/17 07:00 07/19/17 11:28 07/19/17 11:28 07/19/17 07:00 07/19/17 08:00 Period Temp Pulse Resp BP Sys/Valencia Pulse Ox Last 24 Hr 97.0 F-98.9 F 77-98 16-21 132-143/78-94 91-93 Intake and Output 07/18/17 07/19/17 07/19/17 21:59 05:59 13:59 Intake Total 100 / 100 650 / 650 1000 / 1000 Output Total Balance 100 / 100 650 / 650 999 / 999 Weight 208 lb Intake & Output: Intake & Output 07/18/17 07/19/17 07/19/17 21:59 05:59 13:59 Intake Total 100 / 100 650 / 650 1000 / 1000 Output Total Balance 100 / 100 650 / 650 999 / 999 Weight 208 lb Intake: Oral 100 / 100 650 / 650 1000 / 1000 Output: Void Amount Other: Meal Lunch Percent of Meal Consumed 100% # Voids 0 2 2 Exam: Constitutional; Afebrile, cooperative, alert, not in distress. Eyes- No icterus, , No periorbital swelling Ears- Ext ear normal, hearing normal to conversation. Neck- Midline trachea, supple Respiratory system: Air Entry equal on both sides, No crackles or wheezing, no rhonchi. CVS- Rate rhythm regular, S1,S2 heard, no gallop, no rub. Abdomen- Soft nontender abdomen, no organomegaly, no tenderness, no guarding or rigidity, SURVEILLANCE DIRECTOR- AOOx3, moving all extremities, no gross focal deficit noted. Medical - PN: Obj Da - Labs CBC & Chem 7: 07/19/17 04:20 07/19/17 04:20 Labs: Abnormal Lab Results 07/19/17 07/19/17 07/18/17 04:20 04:20 03:30 RDW 15.4 H Gran % 81.3 H Lymph % (Auto) 13.6 L Gran # 8.3 H Lymph # (Auto) 1.4 L Carbon Dioxide BUN 25 H Glucose 140 H 153 H POC Glucose POC WB Ioniz Calcium GGT 113 H 131 H AST ALT 48 H 60 H Alkaline Phosphatase Lactate Dehydrogenase 310 H Triglycerides 152 H 177 H Urine Occult Blood Urine RBC 07/18/17 07/17/17 07/17/17 03:30 09:12 02:50 RDW 15.3 H Gran % 78.9 H Lymph % (Auto) Gran # Lymph # (Auto) 1.2 L Carbon Dioxide 21 L BUN Glucose 115 H POC Glucose 115 H POC WB Ioniz Calcium 1.07 L GGT AST 71 H ALT 79 H Alkaline Phosphatase 121 H Lactate Dehydrogenase Triglycerides Urine Occult Blood 0.03 A Urine RBC 3 H 07/17/17 02:50 RDW 14.7 H Gran % Lymph % (Auto) Gran # Lymph # (Auto) Carbon Dioxide BUN Glucose POC Glucose POC WB Ioniz Calcium GGT AST ALT Alkaline Phosphatase Lactate Dehydrogenase Triglycerides Urine Occult Blood Urine RBC Meds: Medications Acetaminophen (Tylenol) 650 mg PO Q6HP PRN PRN Reason: PAIN/FEVER > 101 Last Admin: 07/19/17 08:26 Dose: 650 mg Hydrocodone Bitart/Acetaminophen ([place] 5/325mg) 1 tab PO Q4HP PRN PRN Reason: PAIN LEVEL 3-6 Last Admin: 07/18/17 17:09 Dose: 1 tab Albuterol/Ipratropium (Duoneb) 3 ml NEB Q4HRT [facility] Last Admin: 07/19/17 11:27 Dose: 3 ml Azithromycin (Zithromax) 250 mg PO DAILY [facility] Stop: 07/20/17 09:01 Last Admin: 07/19/17 08:19 Dose: 250 mg Diphenhydramine HCl (Benadryl) 25 mg PO DAILYP PRN PRN Reason: Allergy Symptoms Enoxaparin Sodium (Lovenox) 40 mg SQ DAILY [facility] Last Admin: 07/19/17 08:22 Dose: 40 mg Magnesium Hydroxide (Milk Of Magnesia) 30 ml PO DAILYP PRN PRN Reason: Constipation Naloxone HCl (Narcan) 0.1 mg IV Q2MIN PRN PRN Reason: Opiate Reversal Omeprazole (Prilosec) 20 mg PO BIDAC [facility] Last Admin: 07/19/17 08:20 Dose: 20 mg Ondansetron HCl (Zofran) 4 mg IV Q4HP PRN PRN Reason: Nausea And Vomiting Mometasone Furoate [ (Asmanex Hfa] Inhaler) 2 dose INH HS [facility] Last Admin: 07/18/17 22:12 Dose: 2 dose Prednisone (Prednisone) 40 mg PO [facility] Sertraline HCl (Zoloft) 100 mg PO DAILY [facility] Last Admin: 07/19/17 08:20 Dose: 100 mg Sodium Chloride (Saline Flush) 10 ml IV Q8 [facility] Last Admin: 07/19/17 05:42 Dose: 10 ml Medical - PN: A/P - Time Spent With Patient Total time spent is greater than 50% in coordination of care (as documented) at patient's floor/unit and/or counseling patient: - Narrative A/P Narrative: A/P Acute copd exacerbation/ emphysema: was IV steroids, zithromax and duonebs, d/c tele, monitor for now. afebrile now, CT neg for worsening pna, mild infitrates which are improving compared to previous studies. clinically better, switch to oral steroids Shortness of breath on minimal exertion:check CT of the chest to rule out pulmonary embolism, get echocardiogram to evaluate cardiac function and pulmonary hypertension. Anxiety: continue zoloft Obesity Wt loss needed follow with pcp Chest pain: Pleuritic in nature, chest pain resolved, trop x 2 neg. DVT hep sq Diet regular Full code Medical - PN: Qual - Stroke Symptom Onset Unknown: No - VTE Deep Vein Thrombosis/Pulmonary Embolism Present on Admission: No
[2017-07-19] MEDS: HYDROcodone/APAP 5/325MG TABLET PO PRN (14:05)
[2017-07-20] MEDS: IPRATROPIUM/ALBUTEROL 3 ML AMPUL.NEB NEB SCH ×6 (03:12→22:41)
[2017-07-20 06:25] LABS: Basophils # (Auto) 0 K/mcL (0.0-0.3); Basophils % (Auto) 0.3 % (0.0-2.0); Eosinophils # (Auto) 0.1 K/mcL (0.0-0.7); Granulocytes % (Auto) 60.5 % (38.0-78.0); Lymphocytes % (Auto) 25.4 % (15.5-49.0); Mean Cell Volume 91.3 fL (80.0-100.0); Mean Corpuscular HGB Conc 33.9 g/dL (31.0-36.0); Mean Corpuscular Hemoglobin 30.9 pg (26.0-34.0); Monocytes # (Auto) 0.9 K/mcL (0.1-0.9); Monocytes % (Auto) 11.8 % (1.0-12.0); Platelet Count 255 K/mcL (140-440); RBC 4.14 M/mcL (4.00-5.20); Red Cell Distribution Width 15.6 % (11.5-14.5)
[2017-07-20 06:32] LABS: ALT/SGPT 34 U/l (0-40); Albumin 3.4 gm/dL (3.2-5.2); Albumin/Globulin Ratio 1.2 (1.0-2.3); Alkaline Phosphatase 78 U/L (39-117); Bilirubin,Direct < 0.2 mg/dL (0.0-0.3); Blood Urea Nitrogen 27 mg/dl (6-20); Gamma Glutamyl Transpeptidase 99 U/L (5-36); Uric Acid 4.3 mg/dL (2.5-8.0)
[2017-07-20] MEDS: AZITHROMYCIN 250 MG TABLET PO SCH (08:53)
[2017-07-20] MEDS: predniSONE 20 MG TABLET PO SCH (08:53)
[2017-07-20] MEDS: OMEPRAZOLE 20 MG CAPSULE PO SCH ×2 (08:53→17:18)
[2017-07-20] MEDS: SERTRALINE 50 MG TABLET PO SCH (08:53)
[2017-07-20] MEDS: ENOXAPARIN 40 MG/0.4 ML SYRINGE SQ SCH (08:54)
[2017-07-20] MEDS: HYDROcodone/APAP 5/325MG TABLET PO PRN ×2 (09:06→17:18)
[2017-07-20] MEDS: 0.9 % SODIUM CHLORIDE 10 ML SYRINGE IV SCH ×3 (09:07→21:24)
--- NOTE | 2017-07-20 20:00 | Internal Med Progress Note ---
Medical - PN: Subj Patient information: Note initiated : 07/20/17 at 7:50 pm Service Date, if different from initiated Date: [] Patient: Amalia Perera a 47 y/o F admitted on 07/18/17 for Shortness of Breath/ COPD Exacerbation. Chief Complaint: f/u COPD Interval history: Ms. Perera is a 47 year old Female with h/o copd, presents to the ER today with complaints of shortness of breath going on x 1 week. the patient notes that for the last 1 week she has noticed due to shortness of breath associated with fever, shortness of breath is worse with exertion, associated with some wheezing , since the last 2 days she has noticed that her oxygen level has been dropping. Negative for yesterday. She's had an episode of shortness of breath while she was sitting down. She has a pulse oximeter at home she checked her oxygen saturation it was in the 70s, she gave herself 2 rounds of duonebs and that helped her oxygen come back up again. The patient last night again woke up with shortness of breath and wheezing. Her oxygen saturation was again in the 70s. She gave herself 2 rounds of DuoNeb's and came to the ED for further evaluation. In the emergency room. According to the ED physician. Her oxygen saturation was low at presentation. This improved after given nebulizer treatment. The patient is also complaining about fever with intermittent chills that has been going on for the last 1 week. The patient has not been feeling well over the last 6 weeks, she was seen in the emergency room, I believe in May with similar complaints, daignosed with pneumonia, At that time, she was given a round of antibiotics and steroids. After which she has been seen twice by a provider and she's had 2 more rounds of antibiotics. I believe she was treated by azithromycin, doxycycline and possibly levofloxacin . In the last 6 weeks. The patient has had some response to these treatments. However, her condition is relapsed after the treatment was completed. according to the patient. She has a pet, she has stopped smoking recently, I believe, 3 months ago, she has not had any change in her environment at home, no new perfumes. No new detergents, no new pets. Her boyfriend who lives next door is doing some construction work and the patient is there often. It is likely that this construction work and the dust emanating from it is likely acting as a trigger and exacerbating the patient's condition. the patient denies any exposure to sick contacts. In the emergency room, the patient was febrile with a temperature of 101.3, she was hypoxic according to the ER physician in the 70s with improvement with DuoNeb's. Her labs were unremarkable, chest x-ray was initially reported as possible infiltrate. However, later CT chest was done which did not show any infection or pneumonia. Option reading of the CT scan of the chest with contrast is still pending. the patient had some headache and dizziness in the past not resolved, denies any difficulty in swallowing, no visual or auditory complaints, she has some shortness of breath and wheezing, she had some chest pain since last 1 day. On the left side associated with deep breathing, she denies any nausea, vomiting, abdominal pain, denies any burning urine. His frequency of urine. Denies any constipation or diarrhea, she denies any joint pains or new skin rashes. he has history of anxiety. Given that she has failed outpatient treatment. The patient was admitted to the hospital for further management. Jul 18 patient seen and examined, no acute overnight events, she gets tachycardic on ambulation with a heart rate comes back normal, when she is at rest. The patient still had shortness of breath on minimal exertion. She admits to being fatigued during ambulation. Cough is still there. She notes symptoms are somewhat worse today than yesterday. Improved with nebulizer treatments. She denies any chest pain, no abdominal pain, no nausea, no vomiting, able to tolerate by mouth diet very well, she still needs oxygen 1-2 L intermittently. Laboratory studies reviewed Jul 19 patient seen and examined, no acute overnight events, she is still tachycardic and short of breath with activity. A much shortness of breath. On exam, there is not much wheezing today. At entry is okay. She continues to be on DuoNeb. Given that her air entry is okay and not much wheeze today and the patient still being symptomatic, look for alternative causes of shortness of breath, get a CT angiogram to rule out pulmonary embolism, get an echocardiogram to evaluate for heart failure and pulmonary hypertension. Jul 20 Feeling better today, dyspnea and is starting to improve. CTA of chest ruled out pulmonary embolism. Echocardiogram with normal left ventricular and right ventricular function, no enlarged pulmonary arteries, no evidence of pulmonary hypertension. Patient without fever, nonproductive cough is improving. - Constitutional Vitals: Vital Signs Temp Pulse Resp BP Pulse Ox 97.9 F 93 H 20 134/69 94 07/20/17 19:28 07/20/17 19:28 07/20/17 19:28 07/20/17 19:28 07/20/17 19:28 Period Temp Pulse Resp BP Sys/[place] Pulse Ox Last 24 Hr 97.3 F-98.7 F 76-98 14-24 123-142/69-96 91-94 Intake and Output 07/20/17 07/20/17 07/20/17 05:59 13:59 21:59 Intake Total 600 / 600 800 / 800 320 / 320 Balance 600 / 600 800 / 800 320 / 320 Intake & Output: Intake & Output 07/20/17 07/20/17 07/20/17 05:59 13:59 21:59 Intake Total 600 / 600 800 / 800 320 / 320 Balance 600 / 600 800 / 800 320 / 320 Intake: Oral 600 / 600 800 / 800 320 / 320 Other: Meal Breakfast Percent of Meal Consumed 100% # Voids 1 1 Exam: General: Sitting in bed, no acute distress Chest: Fairly good aeration bilaterally, no wheezes, no accessory muscle use. Cardiovascular: Regular, no edema Abdomen: Soft, nontender Neuro: Alert, oriented 3, nonfocal Medical - PN: Obj Da - Labs CBC & Chem 7: 07/20/17 04:54 07/20/17 04:54 Labs: Abnormal Lab Results 07/20/17 07/20/17 07/19/17 04:54 04:54 04:20 RDW 15.6 H Gran % Lymph % (Auto) Gran # Lymph # (Auto) BUN 27 H 25 H Glucose 140 H Calcium 8.2 L GGT 99 H 113 H ALT 48 H Lactate Dehydrogenase Triglycerides 269 H 152 H 07/19/17 07/18/17 07/18/17 04:20 03:30 03:30 RDW 15.4 H 15.3 H Gran % 81.3 H 78.9 H Lymph % (Auto) 13.6 L Gran # 8.3 H Lymph # (Auto) 1.4 L 1.2 L BUN Glucose 153 H Calcium GGT 131 H ALT 60 H Lactate Dehydrogenase 310 H Triglycerides 177 H Meds: Medications Acetaminophen (Tylenol) 650 mg PO Q6HP PRN PRN Reason: PAIN/FEVER > 101 Last Admin: 07/19/17 08:26 Dose: 650 mg Hydrocodone Bitart/Acetaminophen ([place] 5/325mg) 1 tab PO Q4HP PRN PRN Reason: PAIN LEVEL 3-6 Last Admin: 07/20/17 17:18 Dose: 1 tab Albuterol/Ipratropium (Duoneb) 3 ml NEB Q4HRT [facility] Last Admin: 07/20/17 18:56 Dose: 3 ml Diphenhydramine HCl (Benadryl) 25 mg PO DAILYP PRN PRN Reason: Allergy Symptoms Enoxaparin Sodium (Lovenox) 40 mg SQ DAILY [facility] Last Admin: 07/20/17 08:54 Dose: 40 mg Magnesium Hydroxide (Milk Of Magnesia) 30 ml PO DAILYP PRN PRN Reason: Constipation Naloxone HCl (Narcan) 0.1 mg IV Q2MIN PRN PRN Reason: Opiate Reversal Omeprazole (Prilosec) 20 mg PO BIDAC [facility] Last Admin: 07/20/17 17:18 Dose: 20 mg Ondansetron HCl (Zofran) 4 mg IV Q4HP PRN PRN Reason: Nausea And Vomiting Mometasone Furoate [ (Asmanex Hfa] Inhaler) 2 dose INH HS [facility] Last Admin: 07/19/17 21:21 Dose: 2 dose Prednisone (Prednisone) 40 mg PO QAMCC [facility] Last Admin: 07/20/17 08:53 Dose: 40 mg Sertraline HCl (Zoloft) 100 mg PO DAILY [facility] Last Admin: 07/20/17 08:53 Dose: 100 mg Sodium Chloride (Saline Flush) 10 ml IV Q8 [facility] Last Admin: 07/20/17 17:17 Dose: 10 ml - Impressions Echocardiogram, 07/19/2017 The left ventricle is normal in size There is mild concentric LVH, ejection fraction 71%, no diastolic dysfunction The LV is hyperdynamic The right ventricle is borderline dilated, with normal RV systolic function. The right atrium is borderline dilated. There is normal IVC collapse with inspiration. - Imaging and cardiology CT scan - chest Status: image reviewed by me Additional comments: IMPRESSION: 1. No evidence of pulmonary embolus 2. Moderate centrilobular emphysema 3. Complete resolution in scattered bilateral groundglass infiltrates with small vague residual persisting in the lingula. No new pulmonary abnormalities Medical - PN: A/P - Time Spent With Patient Total time spent is greater than 50% in coordination of care (as documented) at patient's floor/unit and/or counseling patient: 25 - 35 minutes - Narrative A/P Narrative: 47-year-old female with acute COPD exacerbation, having failed 3 rounds of steroids and antibiotics as an outpatient. Acute COPD exacerbation: was IV steroids, Zithromax and Duoneb; now off tele, afebrile. CT with no PE or new abnormalities, improvement on previous findings. Slowly improving. Continue current Rx, reassess in AM. Shortness of breath on minimal exertion: CTA has ruled out pulmonary embolism, fairly normal cardiac function, borderline dilated RV with preserved RV systolic function. This does not appear to be heart failure to explain her dyspnea. Dyspnea does seem to be improving. Continue to monitor. Anxiety: continue Zoloft Obesity Wt loss needed follow with PCP Chest pain: Pleuritic in nature, chest pain resolved, trop x 2 neg. DVT hep sq Diet regular Full code Medical - PN: Qual - Stroke Symptom Onset Unknown: No - VTE Deep Vein Thrombosis/Pulmonary Embolism Present on Admission: No
[2017-07-21] MEDS: IPRATROPIUM/ALBUTEROL 3 ML AMPUL.NEB NEB SCH ×3 (03:20→11:22)
[2017-07-21 06:17] LABS: Basophils # (Auto) 0 K/mcL (0.0-0.3); Basophils % (Auto) 0.3 % (0.0-2.0); Eosinophils # (Auto) 0.2 K/mcL (0.0-0.7); Eosinophils % (Auto) 2.3 % (0.0-7.0); Granulocytes % (Auto) 53.2 % (38.0-78.0); Lymphocytes # (Auto) 2.4 K/mcL (1.5-4.8); Lymphocytes % (Auto) 31.6 % (15.5-49.0); Mean Cell Volume 89.2 fL (80.0-100.0); Mean Corpuscular HGB Conc 33.5 g/dL (31.0-36.0); Mean Corpuscular Hemoglobin 29.9 pg (26.0-34.0); Monocytes % (Auto) 12.6 % (1.0-12.0); Platelet Count 241 K/mcL (140-440); RBC 4.36 M/mcL (4.00-5.20); Red Cell Distribution Width 15.4 % (11.5-14.5)
[2017-07-21] MEDS: OMEPRAZOLE 20 MG CAPSULE PO SCH (07:14)
[2017-07-21] MEDS: 0.9 % SODIUM CHLORIDE 10 ML SYRINGE IV SCH (07:15)
[2017-07-21 07:29] LABS: ALT/SGPT 45 U/l (0-40); Albumin 3.5 gm/dL (3.2-5.2); Albumin/Globulin Ratio 1.3 (1.0-2.3); Alkaline Phosphatase 70 U/L (39-117); Bilirubin,Direct < 0.2 mg/dL (0.0-0.3); Blood Urea Nitrogen 18 mg/dl (6-20); Gamma Glutamyl Transpeptidase 109 U/L (5-36); Uric Acid 3.9 mg/dL (2.5-8.0)
[2017-07-21] MEDS: SERTRALINE 50 MG TABLET PO SCH (08:53)
[2017-07-21] MEDS: predniSONE 20 MG TABLET PO SCH (08:53)
[2017-07-21] MEDS: ENOXAPARIN 40 MG/0.4 ML SYRINGE SQ SCH (08:53)
--- NOTE | 2017-07-21 11:29 | Discharge Summary ---
Medical - DS: Prov Patient information: Note initiated : 07/21/17 at 11:17 am Service Date, if different from initiated Date: [] Patient: Amalia Perera 47 y/o F admitted on 07/18/17 for Shortness of Breath/ COPD Exacerbation. Date of admission: 07/18/17 08:39 Discharge date: 07/21/17 Primary care physician: Primitivo Garcia Admitting clinician: Chalo Osorio Consults: 07/21/17 09:02 Consult to Physician [CONS] Routine Comment: Consulting Provider: Chalo Osorio Reason For Exam: Physician to Consult Discharging clinician: Nohelia Aggarwal Medical - DS: Meds - Discharge Medications Prescriptions: predniSONE [Prednisone] 40 mg PO QAMCC #11 tab Tiotropium [place] [Spiriva] 18 mcg INH DAILY #30 inhalant Active and Home Medications: Home Medications diphenhydramine 25 mg tablet 25 mg PO .QD PRN tab 12/13/15 [History Confirmed 07/17/17 Last Taken 07/16/17] ibuprofen 200 mg tablet 600 mg PO TID tab 12/13/15 [History Confirmed 07/17/17 Last Taken 07/16/17] mometasone 200 mcg/actuation HFA aerosol inhaler 2 inh INHALATION QDAY g [History Confirmed 07/17/17 Last Taken 07/16/17] omeprazole 20 mg capsule,delayed release 20 mg PO LD 09/14/16 [History Confirmed 07/17/17 Last Taken 07/16/17] albuterol sulfate HFA 90 mcg/actuation aerosol inhaler 1 puff INHALATION ONCE PRN #18 g 02/09/17 [Rx Confirmed 07/17/17 Last Taken 07/15/17 08:00] albuterol sulfate concentrate 2.5 mg/0.5 mL solution for nebulization 2.5 mg CONTINUOUS NEBULIZATION .4XD #90 ml 03/30/17 [Rx Confirmed 07/17/17 Last Taken 07/16/17] sertraline 100 mg tablet 100 mg PO .COMPLEX #30 tab 05/24/17 [Rx Confirmed 07/17 Last Taken 07/16/17] Medical - DS: Hosp Hospital course: In summary: 47-year-old female with COPD, presented to the emergency department febrile and hypoxic with recurrent exacerbation of her COPD. Possible infiltrate on chest x-ray, CT however did not reveal evidence of pneumonia. She had marked prolonged dyspnea, even with improvement in air movement. CTA ruled out pulmonary embolism, echocardiogram showed normal left ventricular and right ventricular function without evidence of pulmonary hypertension. Over the last 48 hours in the hospital she began improving, no longer had an oxygen requirement, was stable for discharge back home. Spiriva was added to her regimen as she is using when necessary albuterol several times a day with her nebulizer. Jul 17 Ms. Perera is a 47 year old Female with h/o copd, presents to the ER today with complaints of shortness of breath going on x 1 week. the patient notes that for the last 1 week she has noticed due to shortness of breath associated with fever, shortness of breath is worse with exertion, associated with some wheezing , since the last 2 days she has noticed that her oxygen level has been dropping. Negative for yesterday. She's had an episode of shortness of breath while she was sitting down. She has a pulse oximeter at home she checked her oxygen saturation it was in the 70s, she gave herself 2 rounds of duonebs and that helped her oxygen come back up again. The patient last night again woke up with shortness of breath and wheezing. Her oxygen saturation was again in the 70s. She gave herself 2 rounds of DuoNeb's and came to the ED for further evaluation. In the emergency room. According to the ED physician. Her oxygen saturation was low at presentation. This improved after given nebulizer treatment. The patient is also complaining about fever with intermittent chills that has been going on for the last 1 week. The patient has not been feeling well over the last 6 weeks, she was seen in the emergency room, I believe in May with similar complaints, daignosed with pneumonia, At that time, she was given a round of antibiotics and steroids. After which she has been seen twice by a provider and she's had 2 more rounds of antibiotics. I believe she was treated by azithromycin, doxycycline and possibly levofloxacin . In the last 6 weeks. The patient has had some response to these treatments. However, her condition is relapsed after the treatment was completed. according to the patient. She has a pet, she has stopped smoking recently, I believe, 3 months ago, she has not had any change in her environment at home, no new perfumes. No new detergents, no new pets. Her boyfriend who lives next door is doing some construction work and the patient is there often. It is likely that this construction work and the dust emanating from it is likely acting as a trigger and exacerbating the patient's condition. the patient denies any exposure to sick contacts. In the emergency room, the patient was febrile with a temperature of 101.3, she was hypoxic according to the ER physician in the 70s with improvement with DuoNeb's. Her labs were unremarkable, chest x-ray was initially reported as possible infiltrate. However, later CT chest was done which did not show any infection or pneumonia. Option reading of the CT scan of the chest with contrast is still pending. the patient had some headache and dizziness in the past not resolved, denies any difficulty in swallowing, no visual or auditory complaints, she has some shortness of breath and wheezing, she had some chest pain since last 1 day. On the left side associated with deep breathing, she denies any nausea, vomiting, abdominal pain, denies any burning urine. His frequency of urine. Denies any constipation or diarrhea, she denies any joint pains or new skin rashes. he has history of anxiety. Given that she has failed outpatient treatment. The patient was admitted to the hospital for further management. Jul 18 patient seen and examined, no acute overnight events, she gets tachycardic on ambulation with a heart rate comes back normal, when she is at rest. The patient still had shortness of breath on minimal exertion. She admits to being fatigued during ambulation. Cough is still there. She notes symptoms are somewhat worse today than yesterday. Improved with nebulizer treatments. She denies any chest pain, no abdominal pain, no nausea, no vomiting, able to tolerate by mouth diet very well, she still needs oxygen 1-2 L intermittently. Laboratory studies reviewed Jul 19 patient seen and examined, no acute overnight events, she is still tachycardic and short of breath with activity. A much shortness of breath. On exam, there is not much wheezing today. At entry is okay. She continues to be on DuoNeb. Given that her air entry is okay and not much wheeze today and the patient still being symptomatic, look for alternative causes of shortness of breath, get a CT angiogram to rule out pulmonary embolism, get an echocardiogram to evaluate for heart failure and pulmonary hypertension. Feb 13 Feeling better today, dyspnea and is starting to improve. CTA of chest ruled out pulmonary embolism. Echocardiogram with normal left ventricular and right ventricular function, no enlarged pulmonary arteries, no evidence of pulmonary hypertension. Patient without fever, nonproductive cough is improving. Feb 14 Continued to improve overnight, was off of oxygen all day yesterday. Did not require oxygen overnight while using her CPAP. Dyspnea continues to improve, feels like she is approaching baseline. Does not note or himself wheezing. At home, she uses Asmanex with as needed albuterol, has been using albuterol several times a day. Discussed intensifying her COPD therapy, we'll add Spiriva to her medication regimen. Otherwise stable for discharge. Discharge diagnosis: COPD with acute exacerbation Secondary discharge diagnosis: Acute hypoxic respiratory failure, resolved - Time Spent with Patient Total time spent providing and/or coordinating discharge services: Greater than 30 minutes Medical - DS: Exam - Constitutional Vitals: Vital Signs Temp Pulse Pulse Resp BP BP Pulse Ox 07/21/17 07:28 92 H 22 92 07/21/17 07:27 98.7 F 84 85 20 143/95 92 07/21/17 03:20 98.5 F 88 20 137/95 93 07/20/17 23:32 98.9 F 86 20 139/81 93 07/20/17 22:46 85 14 07/20/17 19:28 97.9 F 93 H 20 134/69 94 07/20/17 19:01 98 H 14 07/20/17 18:57 94 07/20/17 16:00 98.0 F 96 H 18 133/73 92 07/20/17 15:16 91 07/20/17 15:10 91 H 18 07/20/17 12:00 97.8 F 89 18 123/73 92 Intake and Output 07/20/17 07/21/17 07/21/17 21:59 05:59 13:59 Intake Total 320 / 320 880 / 880 240 / 240 Balance 320 / 320 880 / 880 240 / 240 Intake: Oral 320 / 320 880 / 880 240 / 240 Other: Meal Breakfast Breakfast Percent of Meal Consumed 100% 100% Feeding Ability Independent # Voids 1 1 Weight 206 lb 8 oz Additional comments: General: Sitting in bed in no acute distress, speaking full sentences Chest: Good aeration, no wheezes, no increased expiratory phase. Cardiovascular: Regular rate and rhythm, no edema Abdomen: Soft, nontender Neuro: Alert, oriented 3, nonfocal Medical - DS: Data Labs on day of discharge: Labs from last 24 hours 07/21/17 07/21/17 05:00 05:00 WBC 7.7 RBC 4.36 Hgb 13.0 Hct 38.9 MCV 89.2 MCH 29.9 MCHC 33.5 RDW 15.4 H Plt Count 241 MPV 9.1 Gran % 53.2 Lymph % (Auto) 31.6 [place] % (Auto) 12.6 H Eos % (Auto) 2.3 Baso % (Auto) 0.3 Gran # 4.1 Lymph # (Auto) 2.4 [place] # (Auto) 1.0 H Eos # (Auto) 0.2 Baso # (Auto) 0 Sodium 140 Potassium 3.4 Chloride 101 Carbon Dioxide 27 Anion Gap 12.0 BUN 18 Creatinine 0.7 GFR Calculation 104 Glucose 86 Uric Acid 3.9 Calcium 8.1 L Phosphorus 2.6 L Magnesium 2.3 Total Bilirubin 0.3 Direct Bilirubin < 0.2 GGT 109 H AST 44 H ALT 45 H Alkaline Phosphatase 70 Lactate Dehydrogenase 173 Total Protein 6.1 Albumin 3.5 Globulin 2.6 Albumin/Globulin Ratio 1.3 Triglycerides 256 H Preliminary micro results at discharge 07/17/17 03:10 Blood Culture - Preliminary Blood 07/17/17 02:50 Blood Culture - Preliminary Blood - Impressions Echocardiogram, 07/19/2017 The left ventricle is normal in size There is mild concentric LVH, ejection fraction 71%, no diastolic dysfunction The LV is hyperdynamic The right ventricle is borderline dilated, with normal RV systolic function. The right atrium is borderline dilated. There is normal IVC collapse with inspiration. - Imaging and Cardiology CT scan - chest Additional comments: IMPRESSION: 1. No evidence of pulmonary embolus 2. Moderate centrilobular emphysema 3. Complete resolution in scattered bilateral groundglass infiltrates with small vague residual persisting in the lingula. No new pulmonary abnormalities Medical - DS: A/P - Patient/Caregiver Discharge Instructions Activity: increase activity as tolerated Diet: Regular Diet Additional Instructions: Ask Dr. Garcia about referral to pulmonology in [place]. - Follow up Plan Follow up with: Primitivo Garcia DO [Primary Care Provider] - (as scheduled next week) Disposition: Home, Self-Care Prognosis: Good Rehab Potential: Good Overall status at discharge: patient is progressing back to baseline Medical - DS: Qual - VTE Deep Vein Thrombosis/Pulmonary Embolism Present on Admission: No
== END 2017-07-21 13:15 | disposition home or self-care (01) | DRG 190 ==
LOC: ICU 02:05 → ED 02:05 → ICU 05:20 → MEDSUR 07-18 12:52
PROVIDERS: ADMIT Internal Medicine; ATTEND Internal Medicine